=== PATIENT | female | born 1965 | race African-American/Black ===

== ENCOUNTER 2016-07-07 20:25 | Emergency (ER) | payer OTHER ==
[~2016-07-07] VITALS: Ht 160 cm; Wt 54.4 kg
[~2016-07-07 20:25] MED LIST: AZITHROMYCIN250 MG ORAL; BENAZEPRIL HCL20 MG ORAL; IBUPROFEN600 MG ORAL; MIRTAZAPINE30 MG ORAL; NORCO 5-325 TA1 EACH ORAL; PREDNISONE20 MG ORAL; SEROQUEL100 MG ORAL; SEROQUEL300 MG ORAL
--- NOTE | 2016-07-07 20:40 | Emergency Room Report ---
History of Present Illness General Chief Complaint: Upper Respiratory Illness Source: Patient Present Illness HPI Patient's 51-year-old female who presented after having increased cough and chest congestion. The patient gradual onset of symptoms of the past 4 weeks. Patient reports having continued nonproductive cough. Patient reports being a smoker. She denies any fever. Denies any leg pain or swelling. She reports having some sore throat. Allergies: Coded Allergies: No Known Allergies (Unverified , 01/21/14) Patient History Past Medical History: see triage record Reviewed Nursing Documentation: PMH: Agreed, PSxH: Agreed Nursing Documentation-PMH Hx Hypertension: Yes History Of Psychiatric Problem: Yes - depression Review of Systems All Other Systems: negative except mentioned in HPI Physical Exam Vital Signs Date Time Temp Pulse Resp B/P Pulse Ox O2 Delivery O2 Flow Rate FiO2 07/07/16 20:27 97.5 97 16 140/96 95 Room Air General Appearance: well appearing, no apparent distress, alert, GCS 15 Head: normocephalic, atraumatic ENT: hearing grossly normal, normal voice Neck: full range of motion, supple Respiratory: no respiratory distress, speaking full sentences Cardiovascular #1: normal inspection, normal peripheral pulses, regular rate, rhythm Gastrointestinal: normal inspection, normal bowel sounds, non tender, soft, no mass Musculoskeletal: normal inspection, back normal, no calf tenderness Neurologic: normal inspection, alert, oriented x3, responsive, normal gait Psychiatric: mood/affect normal Skin: no rash Medical Decision Making Diagnostic Impression: Primary Impression: Upper respiratory infection Additional Impression: Bronchitis ER Course Patient is in for cough. Differential diagnosis included but was not limited to bronchitis, pneumonia, pulmonary embolism, pericarditis, asthma, foreign body. Patient's benign exam and does not appear to require any further imaging or laboratory testing at this time. Patient was given breathing treatment with DuoNeb. The patient improvement in respiratory status.The patient is advised to follow up with primary care doctor in 1-2 days. Patient is advised to return if any worsening condition or if any changes in status that are concerning. Last Vital Signs Date Time Temp Pulse Resp B/P Pulse Ox O2 Delivery O2 Flow Rate FiO2 07/07/16 20:27 97.5 97 16 140/96 95 Room Air Status: improved Disposition: HOME, SELF-CARE Condition: Stable Scripts Albuterol Sulfate* (ALBUTEROL SULFATE MDI*) 8.5 Gm Hfa.aer.ad 2 PUFF INH Q6H, #1 INH 0 Refills Prov: Wyatt Whitt 07/07/16 Wyatt Whitt Jul 07, 2016 20:40
[2016-07-07] MEDS ORDERED: ALBUTEROL SULF8.5 GM INH (20:42)
[2016-07-07] MEDS ORDERED: DuoNeb 0.5-3(2.5)mg/3ml neb HHN ONE (20:45)
[2016-07-07 21:10] VITALS: BP_SYST 139; BP_SYST 140; BP_DIAS 75; BP_DIAS 96
== END 2016-07-07 21:10 | disposition home or self-care (01) ==
LOC: EMR 20:51
DX: J06.9 Acute upper respiratory infection, unspecified (principal); J40 Bronchitis, not specified as acute or chronic; I10 Essential (primary) hypertension; F32.9 Major depressive disorder, single episode, unspecified
CPT/HCPCS: 94640; 94664; 99283; J7620

== ENCOUNTER 2016-09-18 11:13 | Emergency (ER) | payer MEDICAID, OTHER ==
[~2016-09-18] VITALS: Ht 167.6 cm; Wt 47.6 kg
[~2016-09-18 11:13] MED LIST changes: +ALBUTEROL SULF8.5 GM INH
[2016-09-18 11:15] VITALS: BP 172/104
[2016-09-18] MEDS ORDERED: GI Cocktail 120ml ORAL ONE (12:15)
[2016-09-18 13:27] VITALS: BP 165/98
--- NOTE | 2016-09-20 13:17 | Emergency Room Report ---
History of Present Illness General Chief Complaint: Nausea, Vomiting, and Diarrhea Source: Patient, EMS Present Illness HPI Patient's 51-year-old female who presented after having increased nausea. Patient was having intermittent episodes of vomiting as well as diarrhea. She reports having some crampy abdominal pain. She reports recent substance use. Patient states last cocaine use was approximately 1 day prior to arrival. The patient denied any fever or chest pain. She denied lightheaded. She reported having nonbilious nonbloody vomit. She denied recent antibiotic use or recent travel. Allergies: Coded Allergies: No Known Allergies (Unverified , 01/21/14) Patient History Past Medical History: see triage record Last Menstrual Period: na Reviewed Nursing Documentation: PMH: Agreed, PSxH: Agreed Nursing Documentation-PMH Past Medical History: No History, Except For Hx Hypertension: Yes History Of Psychiatric Problem: Yes - schizophrenia Review of Systems All Other Systems: negative except mentioned in HPI Physical Exam Vital Signs Date Time Temp Pulse Resp B/P Pulse Ox O2 Delivery O2 Flow Rate FiO2 09/18/16 11:05 97.7 64 18 172/104 98 Room Air General Appearance: well appearing, no apparent distress, alert, GCS 15 Head: normocephalic, atraumatic ENT: hearing grossly normal, normal voice Neck: full range of motion, supple Respiratory: lungs clear, normal breath sounds, no respiratory distress, speaking full sentences Gastrointestinal: normal inspection, normal bowel sounds, non tender, soft Genitourinary: normal inspection, no CVA tenderness Musculoskeletal: normal inspection, back normal, no calf tenderness Neurologic: normal inspection, alert, oriented x3, responsive, manager clinical research III-XII nml as tested, normal gait Psychiatric: mood/affect normal Skin: no rash Medical Decision Making Diagnostic Impression: Primary Impression: Substance abuse ER Course Patient presented for abdominal pain. Differential diagnoses included ischemic bowel, appendicitis, perforated viscus, abdominal aortic aneurysm, inferior myocardial infarction, viral gastroenteritis Patient's benign exam and does not appear to require any further imaging or laboratory testing at this time. Patient appeared to have no evidence of dehydration or systemic toxicity. Patient appears to have recent substance use. Patient is advised to stop using drugs. Patient was given Zofran. Patient was given a prescription for Zofran for nausea. The patient is advised to follow up with primary care doctor in 1-2 days. Patient is advised to return if any worsening condition or if any changes in status that are concerning. Last Vital Signs Date Time Temp Pulse Resp B/P Pulse Ox O2 Delivery O2 Flow Rate FiO2 09/18/16 13:27 97.7 88 18 165/98 98 Room Air Status: improved Disposition: HOME, SELF-CARE Condition: Stable Referrals: [facility] (PCP) Patient Instructions: Substance Use Disorder Wyatt Whitt Sep 20, 2016 13:17
== END 2016-09-18 13:10 | disposition home or self-care (01) ==
LOC: EDBD 11:13 → EMR 12:47
DX: F14.10 Cocaine abuse, uncomplicated (principal); I10 Essential (primary) hypertension; F20.9 Schizophrenia, unspecified
CPT/HCPCS: 99283

== ENCOUNTER 2017-02-15 04:42 | Emergency (ER) | payer MEDICAID, OTHER ==
[~2017-02-15] VITALS: Ht 162.6 cm; Wt 45.4 kg
[~2017-02-15 04:42] MED LIST changes: +NKM
[2017-02-15] MEDS ORDERED: Ketorolac 30mg Inj IV ONE (04:45)
[2017-02-15] MEDS ORDERED: DiphenhydrAMINE 50mg/ml Inj IVP ONE (04:45)
[2017-02-15 04:47] VITALS: BP 146/93
--- NOTE | 2017-02-15 04:54 | Emergency Room Report ---
History of Present Illness General Chief Complaint: Pain Source: Patient, EMS Present Illness HPI Patient presents with 3 days of fever body aches and sore throat. She's also been coughing. The cough is productive of green phlegm. She's been loosing weights She has a psychiatric history. She's been sober for 4 months. She denies any alcohol also. She takes Seroquel and Remeron. She denies any hearing of voices and denies suicidal or homicidal ideation. No hemoptysis, night sweats. No medication taken for the cough or aches. No rashes, trauma. No NVD. Some dysuria. Not suicidal. She has some muscle jerking. Not sure what this is related to. Allergies: Coded Allergies: No Known Allergies (Unverified , 01/21/14) Patient History Past Medical History: see triage record Social History: Reports: smoking, alcohol use, drug use Social History Narrative allegedly sober 4 months, [address] Reviewed Nursing Documentation: PMH: Agreed, PSxH: Agreed Nursing Documentation-PMH Hx Hypertension: Yes History Of Psychiatric Problem: Yes Review of Systems All Other Systems: negative except mentioned in HPI Physical Exam Vital Signs Date Time Temp Pulse Resp B/P (MAP) Pulse Ox O2 Delivery O2 Flow Rate FiO2 02/15/17 04:39 98.1 82 16 146/93 96 Room Air Sp02 EP Interpretation: reviewed, normal General Appearance: alert - but sleepy, thin, other - somewhat dishevelled Head: normocephalic Eyes: bilateral eye PERRL, bilateral eye Scleral Injection ENT: moist mucus membranes, pharyngeal erythema Neck: supple, no meningismus Respiratory: lungs clear, normal breath sounds, rhonchi - occasionally with somewhat productive cough Cardiovascular #1: regular rate, rhythm Cardiovascular #2: 2+ radial (R) Gastrointestinal: normal inspection, normal bowel sounds, non tender, no mass, non-distended, scaphoid Musculoskeletal: back normal, gait/station normal, normal range of motion Neurologic: oriented x3, motor strength/tone normal, DTRs symmetric, sensory intact, speech normal, other - jerking muscle movements occasionally - able to ambulate Psychiatric: no suicidal/homicidal ideation, depressed affect - sleepy Skin: warm/dry, other - dirt caked feet Medical Decision Making Diagnostic Impression: Primary Impression: Bronchitis Additional Impressions: Cocaine abuse Pharyngitis Qualified Codes: J02.9 - Acute pharyngitis, unspecified Choreoform type movements ER Course Patient presents with leaded fevers and sore throats with body aches. She's afebrile the moment however her throat is erythematous. Is a thin. Evaluation will be at EKG, chest x-ray and labs. The patient will receive IV hydration, Benadryl and Toradol. CXR with increased harrison, but no infiltrate. Labs significant for normal WBC and + cocaine and THC. Patient improved with resting and medication treatment. Slightly less jerking movements. Patient given rx as evidence of pharyngitis and mucopurulent cough. Signed out to Dr. Laguna as still sleeping. She is stable for outpatient treatment. Laboratory Tests Test 02/15/17 05:00 02/15/17 05:52 White Blood Count 6.2 K/UL (4.8-10.8) Red Blood Count 4.79 M/UL (4.20-5.40) Hemoglobin 14.1 G/DL (12.0-16.0) Hematocrit 44.2 % (37.0-47.0) Mean Corpuscular Volume 92 FL (80-99) Mean Corpuscular Hemoglobin 29.4 PG (27.0-31.0) Mean Corpuscular Hemoglobin Concent 31.9 G/DL (32.0-36.0) L Red Cell Distribution Width 12.6 % (11.6-14.8) Platelet Count 523 K/UL (150-450) H Mean Platelet Volume 5.8 FL (6.5-10.1) L Neutrophils (%) (Auto) 52.9 % (45.0-75.0) Lymphocytes (%) (Auto) 32.8 % (20.0-45.0) Monocytes (%) (Auto) 7.6 % (1.0-10.0) Eosinophils (%) (Auto) 4.5 % (0.0-3.0) H Basophils (%) (Auto) 2.2 % (0.0-2.0) H Prothrombin Time 10.7 SEC (9.30-11.50) Prothrombin Time INR 1.0 (0.9-1.1) PTT 35 SEC (23-33) H Sodium Level 141 mEQ/L (135-145) Potassium Level 3.5 mEQ/L (3.4-4.9) Chloride Level 101 mEQ/L (98-107) Carbon Dioxide Level 29 mEQ/L (20-30) Anion Gap 11 (5-15) Blood Urea Nitrogen 13 mg/dL (7-23) Creatinine 1.0 mg/dL (0.5-0.9) H Estimate Glomerular Filtration Rate > 60 mL/min (>60) Glucose Level 158 mg/dL (74-106) H Calcium Level 9.8 mg/dL (8.6-10.2) Total Bilirubin 0.2 mg/dL (0.0-1.2) Aspartate Amino Transferase (AST) 15 U/L (5-40) Alanine Aminotransferase (ALT) 12 U/L (3-33) Alkaline Phosphatase 73 U/L (35-104) Total Creatine Kinase 181 U/L (26-140) H Troponin I < 0.30 ng/mL (<=0.30) Total Protein 6.7 g/dL (6.6-8.7) Albumin 3.7 g/dL (3.5-5.2) Globulin 3.0 g/dL Albumin/Globulin Ratio 1.2 (1.0-2.7) Urine Opiates Screen Negative (NEGATIVE) Urine Barbiturates Screen Negative (NEGATIVE) Phencyclidine (PCP) Screen Negative (NEGATIVE) Urine Amphetamines Screen Negative (NEGATIVE) Urine Benzodiazepines Screen Negative (NEGATIVE) Urine Cocaine Screen Positive (NEGATIVE) H Urine Marijuana (THC) Screen Positive (NEGATIVE) H Chest X-Ray Diagnostic Results Chest X-Ray Diagnostic Results : Chest X-Ray Ordered: Yes # of Views/Limited/Complete: 1 View Indication: Other EP Interpretation: Yes Interpretation: no consolidation, no effusion, no pneumothorax, no acute cardiopulmonary disease Impression: No acute disease Electronically Signed by: Electronically signed by Lucas Avitia MD Last Vital Signs Date Time Temp Pulse Resp B/P (MAP) Pulse Ox O2 Delivery O2 Flow Rate FiO2 02/15/17 09:55 77 16 169/95 Room Air 02/15/17 08:03 97.9 99 Status: improved Disposition: HOME, SELF-CARE Condition: Improved Scripts Guaifenesin/Dextromethorphan (ROBITUSSIN COUGH-CHEST DM LIQ) 237 Ml Liquid 5 ML PO Q6HR, #100 ML Prov: Lucas Avitia M.D. 02/15/17 Acetaminophen (Tylenol) 325 Mg Tablet 650 MG ORAL Q6H Y for Prn Pain/Headache/Temp > 101, #30 TAB 0 Refills Prov: Lucas Avitia M.D. 02/15/17 Levofloxacin* (LEVAQUIN*) 500 Mg Tablet 500 MG ORAL DAILY, #7 TAB Prov: Lucas Avitia M.D. 02/15/17 Lucas Avitia M.D. Feb 15, 2017 04:54
[2017-02-15 05:31] LABS: BASOPHILS % (AUTO) 2.2 % (0.0-2.0); EOSINOPHILS % (AUTO) 4.5 % (0.0-3.0); LYMPHOCYTES % (AUTO) 32.8 % (20.0-45.0); MEAN CORPUSCULAR HEMOGLOBIN 29.4 PG (27.0-31.0); MEAN CORPUSCULAR HGB CONC 31.9 G/DL (32.0-36.0); MEAN CORPUSCULAR VOLUME 92 FL (80-99); MEAN PLATELET VOLUME 5.8 FL (6.5-10.1); MONOCYTES % (AUTO) 7.6 % (1.0-10.0); NEUTROPHILS % (AUTO) 52.9 % (45.0-75.0); PLATELET COUNT 523 K/UL (150-450); RED BLOOD COUNT 4.79 M/UL (4.20-5.40); RED CELL DISTRIBUTION WIDTH 12.6 % (11.6-14.8); WHITE BLOOD COUNT 6.2 K/UL (4.8-10.8)
[2017-02-15 05:41] LABS: PROTHROMBIN TIME 10.7 SEC (9.30-11.50)
[2017-02-15 05:57] LABS: TROPONIN I < 0.30 ng/mL (<=0.30)
[2017-02-15 05:59] LABS: ALANINE AMINOTRANSFERASE 12 U/L (3-33); ALBUMIN/GLOBULIN RATIO 1.2 (1.0-2.7); ANION GAP 11 (5-15); ASPARTATE AMINO TRANSFERASE 15 U/L (5-40); CALCIUM 9.8 mg/dL (8.6-10.2); CARBON DIOXIDE 29 mEQ/L (20-30); CHLORIDE 101 mEQ/L (98-107); GLOMERULAR FILTRATION RATE > 60 mL/min (>60); HEMOLYSIS 14; POTASSIUM 3.5 mEQ/L (3.4-4.9); SODIUM 141 mEQ/L (135-145); TOTAL PROTEIN 6.7 g/dL (6.6-8.7)
[2017-02-15] MEDS ORDERED: TYLENOL325 MG ORAL (06:38)
[2017-02-15] MEDS ORDERED: ROBITUSSIN COU237 M1 PO (06:38)
[2017-02-15] MEDS ORDERED: LEVAQUIN500 MG ORAL (06:38)
[2017-02-15] MEDS ORDERED: Levofloxacin 500mg tab ORAL ONE (06:45)
[2017-02-15 08:03] VITALS: BP 167/114
[2017-02-15 09:55] VITALS: BP 169/95
--- NOTE | 2017-02-15 11:11 | Diagnostic Imaging Report ---
Indication: Cough Comparison: None A single view chest radiograph was obtained. Findings: No definite infiltrate or pulmonary vascular congestion identified. The heart is enlarged. The aorta is mildly enlarged consistent with atherosclerotic vascular disease. The bones are osteopenic. Impression: No acute disease
--- NOTE | 2017-02-18 16:00 | Cardiology Report ---
APPROVED REPORT EKG Measurement Heart [id number] Normal sinus rhythm Moderate voltage criteria for LVH, may be normal variant T wave abnormality- consider anteroseptal ischemia Prolonged QT Abnormal ECG
== END 2017-02-15 10:04 | disposition home or self-care (01) ==
LOC: EDBD 04:42 → EMR 04:50
DX: J40 Bronchitis, not specified as acute or chronic (principal); F14.10 Cocaine abuse, uncomplicated; J02.9 Acute pharyngitis, unspecified; I10 Essential (primary) hypertension; F17.200 Nicotine dependence, unspecified, uncomplicated
CPT/HCPCS: 36415; 71010; 80053; 80300; 82550; 84484; 85025; 85610; 85730; 93005; 96361; 96374; 96375; 99284; J1200; J1885

== ENCOUNTER 2017-05-05 18:14 | Emergency (ER) | payer MEDICAID, OTHER ==
[~2017-05-05] VITALS: Ht 157.5 cm; Wt 47.6 kg
[~2017-05-05 18:14] MED LIST changes: +LEVAQUIN500 MG ORAL; +ROBITUSSIN COU237 M1 PO; +TYLENOL325 MG ORAL
[2017-05-05 18:30] VITALS: BP 179/109
[2017-05-05] MEDS ORDERED: Lidocaine 2% Visc 15ml soln ORAL ONE (18:30)
[2017-05-05] MEDS ORDERED: Dicyclomine HCl 10mg/5ml oral soln ORAL ONE (18:30)
[2017-05-05] MEDS ORDERED: Mylanta II UD 30ml ORAL ONE (18:30)
[2017-05-05] MEDS ORDERED: TYLENOL EXTRA500 MG ORAL (20:04)
[2017-05-05] MEDS ORDERED: OMEPRAZOLE20 M2 ORAL (20:04)
[2017-05-05 20:35] VITALS: BP 164/99
[2017-05-05 20:36] VITALS: BP 164/99
--- NOTE | 2017-05-05 22:15 | Emergency Room Report ---
History of Present Illness General Chief Complaint: Abdominal Pain Source: Patient, Medical Record Present Illness HPI The patient is a 51-year-old female brought in by ambulance for abdominal pain. The patient states that this pain began this morning upon waking her described as a 10 out of 10 dull ache to the mid upper abdomen. She also admits to burning in the mid chest. The patient states that pain has continued and she used "crack" for the pain 2 hours ago which did not help. She denies using any other drugs or medication. She does admit to feeling of nausea. She denies other symptoms including fever, chills, shortness of breath, diarrhea, constipation, hematemesis, back pain Allergies: Coded Allergies: No Known Allergies (Unverified , 01/21/14) Patient History Past Medical History: see triage record Pertinent Family History: none Social History: Reports: drug use Last Menstrual Period: menopause Reviewed Nursing Documentation: PMH: Agreed, PSxH: Agreed Nursing Documentation-PMH Past Medical History: No History, Except For Hx Hypertension: Yes Review of Systems All Other Systems: negative except mentioned in HPI Physical Exam Vital Signs Date Time Temp Pulse Resp B/P (MAP) Pulse Ox O2 Delivery O2 Flow Rate FiO2 05/05/17 18:12 98.1 68 18 195/124 99 Room Air Sp02 EP Interpretation: reviewed, normal General Appearance: no apparent distress, alert, GCS 15, non-toxic, thin Head: normocephalic, atraumatic Eyes: bilateral eye normal inspection, bilateral eye PERRL ENT: hearing grossly normal, normal pharynx, no angioedema, normal voice Neck: full range of motion, supple/symm/no masses Respiratory: chest non-tender, lungs clear, normal breath sounds, speaking full sentences Cardiovascular #1: regular rate, rhythm, no edema Gastrointestinal: normal bowel sounds, soft, tenderness - epigastric Rectal: deferred Genitourinary: normal inspection, no CVA tenderness Musculoskeletal: back normal, gait/station normal, normal range of motion, non- tender Neurologic: alert, oriented x3, responsive, motor strength/tone normal, sensory intact, speech normal Psychiatric: judgement/insight normal, memory normal, mood/affect normal, no suicidal/homicidal ideation Skin: normal color, no rash, warm/dry, well hydrated Medical Decision Making PA Attestation Dr. Torres is my supervising physician. Patient management was discussed with my supervising physician Diagnostic Impression: Primary Impression: GERD (gastroesophageal reflux disease) Qualified Codes: K21.9 - Gastro-esophageal reflux disease without esophagitis ER Course The patient is a 51-year-old female presenting for abdominal pain Differential diagnoses considered include but not limited to gastritis, pancreatitis, appendicitis, perforation, UTI PE: Vitals stable. Afebrile. NAD. Abdomen: Normal appearance. Non distended. No ecchymosis. + Epigastric TTP. No McBurney point tenderness. No guarding. No CVA tenderness The patient given a GI cocktail, Zofran, and Tylenol and is feeling much better. She is now resting comfortably. The patient will be treated with omeprazole at home and will follow up with her primary doctor. She was told to stop using drugs. ER precautions given Last Vital Signs Date Time Temp Pulse Resp B/P (MAP) Pulse Ox O2 Delivery O2 Flow Rate FiO2 05/05/17 20:36 98.1 88 16 164/99 100 Room Air Status: improved Disposition: HOME, SELF-CARE Condition: Improved Scripts Acetaminophen* (TYLENOL EXTRA STRENGTH*) 500 Mg Tablet 500 MG ORAL Q8H Y for Prn Headache/Temp > 101, #30 TAB 0 Refills Prov: TANG SESAY 05/05/17 Omeprazole (OMEPRAZOLE) 20 Mg Capsule. 20 MG ORAL DAILY, #30 CAP Prov: TANG SESAY 05/05/17 Referrals: [facility] (PCP) Patient Instructions: Stimulant Use Disorder-Cocaine, Abdominal Pain, Adult Additional Instructions: I discussed my findings with the patient. All questions and concerns have been answered. Treatment and medication compliance have been addressed. I advised the patient that they need to follow up with PMD in 3-5 days. Return to ED if symptoms worsen, new symptoms arise, or if needed for any reason. Patient verbalized understanding of discharge instructions. TANG SESAY May 05, 2017 22:15
== END 2017-05-05 20:30 | disposition home or self-care (01) ==
LOC: EDBD 18:14 → EMR 18:30
DX: K21.9 Gastro-esophageal reflux disease without esophagitis (principal); I10 Essential (primary) hypertension
CPT/HCPCS: 99284

== ENCOUNTER 2020-03-12 08:12 | Emergency (ER) | payer MEDICAID, OTHER ==
[~2020-03-12] VITALS: Ht 152.4 cm; Wt 54.4 kg
[~2020-03-12 08:12] MED LIST changes: +OMEPRAZOLE20 M2 ORAL; +TYLENOL EXTRA500 MG ORAL
--- NOTE | 2020-03-12 08:16 | Emergency Room Report ---
History of Present Illness General Chief Complaint: Abdominal Pain Source: Patient, EMS Present Illness HPI 54-year-old female history of hypertension found sleeping outside of a 711, 911 was called, patient then started complaining of vague abdominal discomfort, with nausea vomiting and diarrhea no chest pain or shortness of breath no fevers no chills, severity is mild, constant, symptoms started today, patient is requesting soup, patient during interview falls intermittently asleep. Allergies: Coded Allergies: No Known Allergies (Unverified , 01/21/14) COVID-19 Screening Contact w/high risk pt: No Experienced COVID-19 symptoms?: Yes COVID-19 Testing performed TANK PUMPER: No Patient History Past Medical History: see triage record Social History: Reports: smoking, alcohol use, drug use - Cocaine Reviewed Nursing Documentation: PMH: Agreed; PSxH: Agreed Nursing Documentation-PMH Hx Hypertension: Yes Review of Systems All Other Systems: negative except mentioned in HPI Physical Exam Vital Signs Date Time Temp Pulse Resp B/P (MAP) Pulse Ox O2 Delivery O2 Flow Rate FiO2 03/12/20 08:08 96.4 80 16 184/92 (122) 96 Room Air Sp02 EP Interpretation: reviewed, normal General Appearance: well appearing, no apparent distress, alert Head: normocephalic, atraumatic Eyes: bilateral eye PERRL, bilateral eye EOMI ENT: uvula midline, moist mucus membranes Neck: supple, thyroid normal, supple/symm/no masses Respiratory: lungs clear, no respiratory distress, no retraction, no accessory muscle use Cardiovascular #1: normal peripheral pulses, regular rate, rhythm, no edema, no gallop, no murmur Gastrointestinal: non tender, soft, no guarding, no rebound Musculoskeletal: normal inspection Neurologic: alert, oriented x3 Psychiatric: mood/affect normal Skin: no rash, warm/dry Medical Decision Making Homeless Attestation I, The treating physician Dr. Morgan, have assessed and agrees that patient is medically stable for discharge to an outpatient disposition. Diagnostic Impression: Primary Impression: Abdominal pain Qualified Codes: R10.84 - Generalized abdominal pain ER Course 54-year-old female presents with vague abdominal pain, patient during interview continues to fall asleep, patient in no acute distress patient tolerating good p.o., labs unremarkable no acute indications for admission differential includes gastroenteritis, appendicitis, diverticulitis, doubt either Disposition home with return precautions Laboratory Tests Test 03/12/20 08:05 03/12/20 08:40 03/12/20 09:30 Serum Alcohol < 3 mg/dL White Blood Count 5.2 K/UL (4.8-10.8) Red Blood Count 5.67 M/UL (4.20-5.40) H Hemoglobin 16.1 G/DL (12.0-16.0) H Hematocrit 47.8 % (37.0-47.0) H Mean Corpuscular Volume 84 FL (80-99) Mean Corpuscular Hemoglobin 28.4 PG (27.0-31.0) Mean Corpuscular Hemoglobin Concent 33.7 G/DL (32.0-36.0) Red Cell Distribution Width 12.7 % (11.6-14.8) Platelet Count 459 K/UL (150-450) H Mean Platelet Volume 5.1 FL (6.5-10.1) L Neutrophils (%) (Auto) 66.5 % (45.0-75.0) Lymphocytes (%) (Auto) 20.7 % (20.0-45.0) Monocytes (%) (Auto) 7.4 % (1.0-10.0) Eosinophils (%) (Auto) 0.8 % (0.0-3.0) Basophils (%) (Auto) 4.7 % (0.0-2.0) H Sodium Level 138 MMOL/L (136-145) Potassium Level 3.5 MMOL/L (3.5-5.1) Chloride Level 101 MMOL/L (98-107) Carbon Dioxide Level 28 MMOL/L (21-32) Anion Gap 9 mmol/L (5-15) Blood Urea Nitrogen 11 mg/dL (7-18) Creatinine 0.9 MG/DL (0.55-1.30) Estimated Glomerular Filtration Rate > 60 mL/min (>60) Glucose Level 109 MG/DL (74-106) H Calcium Level 9.1 MG/DL (8.5-10.1) Total Bilirubin 0.6 MG/DL (0.2-1.0) Aspartate Amino Transferase (AST) 18 U/L (15-37) Alanine Aminotransferase (ALT) 19 U/L (12-78) Alkaline Phosphatase 93 U/L (46-116) Total Protein 8.0 G/DL (6.4-8.2) Albumin 3.7 G/DL (3.4-5.0) Globulin 4.3 g/dL Albumin/Globulin Ratio 0.9 (1.0-2.7) L Lipase 112 U/L (73-393) Urine Color Yellow Urine Appearance Slightly cloudy Urine pH 8 (4.5-8.0) Urine Specific [place] 1.010 (1.005-1.035) Urine Protein 1+ (NEGATIVE) H Urine Glucose (UA) Negative (NEGATIVE) Urine Ketones 1+ (NEGATIVE) H Urine Blood Negative (NEGATIVE) Urine Nitrite Negative (NEGATIVE) Urine Bilirubin Negative (NEGATIVE) Urine Urobilinogen Normal MG/DL (0.0-1.0) Urine Leukocyte Esterase 3+ (NEGATIVE) H Urine RBC 0-2 /HPF (0 - 2) Urine WBC 10-15 /HPF (0 - 2) H Urine Squamous Epithelial Cells Few /LPF (NONE/OCC) Urine Bacteria Few /HPF (NONE) Urine Opiates Screen Negative (NEGATIVE) Urine Barbiturates Screen Negative (NEGATIVE) Phencyclidine (PCP) Screen Negative (NEGATIVE) Urine Amphetamines Screen Negative (NEGATIVE) Urine Benzodiazepines Screen Negative (NEGATIVE) Urine Cocaine Screen Positive (NEGATIVE) H Urine Marijuana (THC) Screen Negative (NEGATIVE) Last Vital Signs Date Time Temp Pulse Resp B/P (MAP) Pulse Ox O2 Delivery O2 Flow Rate FiO2 03/12/20 08:08 96.4 80 16 184/92 (122) 96 Room Air Disposition: HOME, SELF-CARE Condition: Stable Scripts Famotidine* (Pepcid 20mg tablet*) 20 Mg Tablet 20 MG ORAL TWICE A DAY for Gerd, #60 TAB 0 Refills Prov: Noe Morgan MD 03/12/20 Referrals: [facility] Patient Instructions: Abdominal Pain, Adult Additional Instructions: The patient was provided with discharge instructions, notified to follow-up with a primary care doctor and or specialist in the next 24-48 hours, and to return t o the ED if they have worsening of their symptoms. Please note that this report is being documented using [employer] technology. This can lead to erroneous entry secondary to incorrect interpretation by the dictating instrument. Noe Morgan MD Mar 12, 2020 08:16
--- NOTE | 2020-03-12 08:30 | NUR ---
ED Nurse Note:pt. was BIBA from the street with abdominal pain and nausea, pt. is A/Ox3 VSS, no respiratory distress, blood was sent to labs
[2020-03-12 08:56] VITALS: BP 169/92
[2020-03-12 09:09] LABS: BASOPHILS % (AUTO) 4.7 % (0.0-2.0); EOSINOPHILS % (AUTO) 0.8 % (0.0-3.0); HEMATOCRIT 47.8 % (37.0-47.0); HEMOGLOBIN 16.1 G/DL (12.0-16.0); LYMPHOCYTES % (AUTO) 20.7 % (20.0-45.0); MEAN CORPUSCULAR VOLUME 84 FL (80-99); MONOCYTES % (AUTO) 7.4 % (1.0-10.0); NEUTROPHILS % (AUTO) 66.5 % (45.0-75.0); PLATELET COUNT 459 K/UL (150-450); RED BLOOD COUNT 5.67 M/UL (4.20-5.40); RED CELL DISTRIBUTION WIDTH 12.7 % (11.6-14.8); WHITE BLOOD COUNT 5.2 K/UL (4.8-10.8)
[2020-03-12 09:22] LABS: ANION GAP 9 mmol/L (5-15); BLOOD UREA NITROGEN 11 mg/dL (7-18); CALCIUM 9.1 MG/DL (8.5-10.1); CARBON DIOXIDE 28 MMOL/L (21-32); CHLORIDE 101 MMOL/L (98-107); CREATININE 0.9 MG/DL (0.55-1.30); POTASSIUM 3.5 MMOL/L (3.5-5.1); SODIUM 138 MMOL/L (136-145)
[2020-03-12 09:30] LABS: ALANINE AMINOTRANSFERASE 19 U/L (12-78); ALBUMIN 3.7 G/DL (3.4-5.0); ALBUMIN/GLOBULIN RATIO 0.9 (1.0-2.7); ALKALINE PHOSPHATASE 93 U/L (46-116); ASPARTATE AMINO TRANSFERASE 18 U/L (15-37); BILIRUBIN,TOTAL 0.6 MG/DL (0.2-1.0)
[2020-03-12 09:41] LABS: APPEARANCE,URINE SLIGHTLY CLOUDY; BILIRUBIN, URINE NEGATIVE (NEGATIVE); GLUCOSE, URINE (UA) NEGATIVE (NEGATIVE); KETONES,URINE 1+ (NEGATIVE); LEUKOCYTE ESTERASE ,URINE 3+ (NEGATIVE); NITRITE,URINE NEGATIVE (NEGATIVE); PH,URINE 8 (4.5-8.0); PROTEIN,URINE 1+ (NEGATIVE); UROBILINOGEN,URINE NORMAL MG/DL (0.0-1.0)
[2020-03-12 09:44] LABS: COLOR,URINE YELLOW
[2020-03-12] MEDS ORDERED: FAMOTIDINE20 MG ORAL (10:28)
[2020-03-12] MEDS ORDERED: CEPHALEXIN500 M1 ORAL (10:41)
[2020-03-12] MEDS ORDERED: Acetaminophen 500mg (ES) tab ORAL ONE ×2 (10:57→11:00)
[2020-03-12 11:00] VITALS: BP 159/90
--- NOTE | 2020-03-12 11:00 | NUR ---
Homeless Discharge: Patient is being discharged from medical care. Awake, alert and oriented x3. After care instructions, including referral to community resources were given. Patient verbalized understanding of After care instructions; at this time patient does not request equipment or placement, she picked up her meds from [facility] pharmacy Patient signed patient consent in the medical record for patient destination upon discharge. All medical devices such as IV and ID band were removed. Patient ambulated out with all personal belongings with steady gait.
== END 2020-03-12 11:00 | disposition home or self-care (01) ==
LOC: EDBD 08:12 → EMR 08:20
DX: R10.84 Generalized abdominal pain (principal); R11.2 Nausea with vomiting, unspecified; I10 Essential (primary) hypertension; R19.7 Diarrhea, unspecified; F17.200 Nicotine dependence, unspecified, uncomplicated
CPT/HCPCS: 36415; 80053; 80307; 81003; 83690; 85025; G0480; Z7502; 99284